=== PATIENT | male | born 1965 | race Caucasian/White ===

== ENCOUNTER 2017-01-29 11:46 | Emergency (ER) | payer OTHER ==
[~2017-01-29] VITALS: Ht 182.9 cm; Wt 87.5 kg
[2017-01-29 11:53] VITALS: TEMP 36.8; Ht 182.9 cm; Wt 87.5 kg
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
[2017-01-29 14:35] VITALS: BP 129/71; PULSE 74; O2SAT 97
== END 2017-01-29 14:36 | disposition home or self-care (01) ==
LOC: EDBD 11:46 → C.EDC 11:47
DX: S16.1XXA Strain of muscle, fascia and tendon at neck level, initial encounter (principal); S40.812A Abrasion of left upper arm, initial encounter; M54.5 Low back pain; R51 Headache; V53.5XXA Driver of pick-up truck or van injured in collision with car, pick-up truck or van in traffic accident, initial encounter